=== PATIENT | female | born 1980 | race Caucasian/White ===

== ENCOUNTER 2018-02-23 04:38 | Emergency (ER) | payer SELFPAY ==
[~2018-02-23] VITALS: Ht 172.7 cm; Wt 94.8 kg
[2018-02-23 04:43] VITALS: BP 136/79; Ht 172.7 cm; Wt 94.8 kg
== END 2018-02-23 05:37 | disposition home or self-care (01) ==
LOC: ED 04:38
DX: S82.64XA Nondisplaced fracture of lateral malleolus of right fibula, initial encounter for closed fracture (principal); X58.XXXA Exposure to other specified factors, initial encounter; Y93.02 Activity, running; Y92.89 Other specified places as the place of occurrence of the external cause; Y99.8 Other external cause status
CPT/HCPCS: Q0092